=== PATIENT | male | born 1965 | race Hispanic/Latino ===

== ENCOUNTER → 2017-01-18 | Outpatient (CLI) | payer OTHER ==
--- NOTE | 2017-01-18 21:16 | ECHO ---
DATE OF PROCEDURE: 01/17/2017 REFERRING PHYSICIAN: Bhavin San MD INDICATION: Ischemic heart disease. HEIGHT: 67 inches WEIGHT: 165 pounds DIMENSIONS: IVS: 0.8 LV: 5.0 LVPW: 1.0 LA: 3.6 AORTA: 2.8 FINDINGS: The study is of acceptable technical quality. Left ventricle is normal size and systolic function with estimated left ventricular ejection fraction (LVEF) of 60-65%. Right ventricle is also normal size and systolic function. Both atria appear normal. All four cardiac valves were reasonably well seen and appear normal. No pericardial effusion is noted. Aortic root is normal. Aortic arch and abdominal aorta also appear normal. Doppler interrogation reveals no significant aortic stenosis or insufficiency. Also mitral tricuspid and pulmonic valves are functionally competent. Mitral inflow pattern and tissue Doppler imaging of mitral annulus reveal probably normal diastolic function even though tissue Doppler velocities of mitral annulus are mildly reduced (E prime septal: 7.0 cm/s, E prime lateral: 10.3 cm/s). CONCLUSIONS: 1. Study is of acceptable technical quality. 2. Normal LV size and systolic function. Normal diastolic function. 3. No significant valvular disease. 4. Normal central venous pressure. 5. Unable to estimate pulmonary artery pressure, but no signs to suggest pulmonary hypertension. COMMENT: Subacute bacterial endocarditis (SBE) prophylaxis is not recommended. Essentially normal echocardiogram.
== END ==
LOC: M CARPUL 11:05
PROVIDERS: ATTEND Internal Medicine
DX: I25.10 Atherosclerotic heart disease of native coronary artery without angina pectoris (principal)

== ENCOUNTER → 2022-02-11 | Outpatient (CLI) | payer OTHER ==
[~2022-02-11] MED LIST: CLOB5CR TOP; EZETIMIBE PO; ROSUVASTATIN PO; ZOLO100T PO; [UNRECOGNIZED DRUG - CODE] TOP
== END ==
LOC: M LABSMTC 08:50
PROVIDERS: ATTEND Anesthesiology
DX: Z01.812 Encounter for preprocedural laboratory examination (principal)

== ENCOUNTER 2022-02-14 09:53 | Day surgery (SDC) | payer OTHER ==
[~2022-02-14] VITALS: Ht 170.2 cm; Wt 68.0 kg
[~2022-02-14 09:53] MED LIST changes: +LIDOCAINE 2% 100MG/5ML SDV (FOR ANES.) As Ordered ONE; +NS 1,000 ML IV ONE; +propofoL 200 MG/20 ML VIAL As Ordered ONE
[2022-02-14 11:47] VITALS: BP 115/56
== END 2022-02-14 11:47 | disposition home or self-care (01) ==
LOC: M OPP 09:53
PROVIDERS: ATTEND Internal Medicine Gastroenterology
DX: Z12.11 Encounter for screening for malignant neoplasm of colon (principal); K64.0 First degree hemorrhoids; K57.30 Diverticulosis of large intestine without perforation or abscess without bleeding; F41.9 Anxiety disorder, unspecified; F32.A Depression, unspecified; F43.10 Post-traumatic stress disorder, unspecified; G47.30 Sleep apnea, unspecified; Z87.891 Personal history of nicotine dependence; Z79.899 Other long term (current) drug therapy